=== PATIENT | male | born 1955 | race African-American/Black ===

== ENCOUNTER 2020-11-24 04:23 | Day surgery (SDC) | payer OTHER ==
[2020-11-22 12:00] VITALS: BMI 27.1
[2020-11-24] MEDS ORDERED: BACITRACIN 15 GM TUBE TOPICAL OINTMENT ONE (08:02)
[2020-11-24] MEDS ORDERED: DEXMEDETOMIDINE HCL 200 MCG/2 ML IVPB ONE (11:57)
[2020-11-24] MEDS ORDERED: ACETAMINOPHEN INJECTION 100 ML IVPB ONE (11:58)
[2020-11-24] MEDS ORDERED: SUCCINYLCHOLINE CHLORIDE 200 MG/10 ML SYRINGE ONE ×2 (12:04→13:19)
[2020-11-24] MEDS ORDERED: MIDAZOLAM HCL 2 MG/2 ML SINGLE DOSE VIAL ONE (12:04)
[2020-11-24] MEDS ORDERED: PROPOFOL 20 ML ONE ×4 (12:04→13:38)
[2020-11-24] MEDS ORDERED: ceFAZolin SODIUM 1 GM VIAL IVPB ONE (13:00)
[2020-11-24 18:12] VITALS: BP 145/85; PULSE 56; TEMP 97.2
== END 2020-11-24 17:20 | disposition home or self-care (01) ==
LOC: JASU-SURG 04:23
PROVIDERS: ATTEND Urology
PROC: 0V503ZZ Destruction of Prostate, Percutaneous Approach (ICD-10-PCS; principal; 2020-11-24 12:00)
DX: C61 Malignant neoplasm of prostate (principal)
CPT/HCPCS: 55873; C2618; 94760; J0131